=== PATIENT | female | born 1960 | race African-American/Black ===

== ENCOUNTER 2021-12-17 00:08 | Emergency (ER) | payer OTHER ==
[~2021-12-17] VITALS: Ht 154.9 cm; Wt 122.5 kg
[2021-12-17 01:22] LABS: Basophils # (auto) 0 10 ^3/uL (0-0.2); Basophils % (auto) 0.6 % (0.0-2.0); Eosinophils # (auto) 0.1 10 ^3/uL (0-0.8); Eosinophils % (auto) 1.4 % (0.0-7.0); Hematocrit 45.8 % (36.0-46.0); Hemoglobin 15.3 g/dL (12.2-16.2); Lymphocytes # (auto) 1.5 10 ^3/uL (0.4-5.4); Lymphocytes % (auto) 29.9 % (10.0-50.0); Mean Corpuscular Hemoglobin 30.7 pg (28.0-32.0); Mean Corpuscular Hgb Conc. 33.4 g/dL (32.0-36.0); Monocytes # (auto) 0.3 10 ^3/uL (0-1.3); Monocytes % (auto) 6.7 % (0.0-12.0); Neutrophils % (auto) 61.4 % (37.0-80.0); Nucleated Red Blood Cells % 0.1 %; Red Blood Cells 4.99 10^6/uL (4.0-5.20); White Blood Cell 4.9 10^3/uL (4.4-10.8)
[2021-12-17] MEDS ORDERED: SODIUM CHLORIDE 0.9% 1,000 ML IV ONE (01:45)
[2021-12-17] MEDS ORDERED: MORPHINE SULFATE 4 MG/ML SYR/VIAL IV ONE (01:45)
[2021-12-17] MEDS ORDERED: ONDANSETRON HCL 4 MG/2 ML VIAL IV ONE (01:45)
[2021-12-17 01:56] LABS: Albumin 3.4 g/dL (3.4-5.0); BUN/Creatinine Ratio 12.5; Bilirubin, Total 0.3 mg/dL (0.2-1.0); Calcium 9.1 mg/dL (8.5-10.1); Potassium 3.6 mmol/L (3.5-5.1); Total Protein 8.5 g/dL (6.4-8.2)
[2021-12-17] MEDS ORDERED: IOHEXOL 300 MG/ML 100ML BOTTLE IJ ONE (02:23)
[2021-12-17 03:15] LABS: Urine Bacteria NONE SEEN /hpf (None Seen); Urine Blood Negative /uL (Negative); Urine Mucus FEW (None Seen); Urine Specific Gravity 1.012 (1.001-1.035); Urine WBC 3 /hpf (0 - 5)
[2021-12-17] MEDS ORDERED: DICY10CA PO (05:40)
[2021-12-17] MEDS ORDERED: ONDA-144 PO (05:40)
[2021-12-17 06:00] VITALS: BP 129/69
== END 2021-12-17 06:31 | disposition home or self-care (01) ==
LOC: EDBD → ER 00:20
DX: A05.9 Bacterial foodborne intoxication, unspecified (principal); D25.9 Leiomyoma of uterus, unspecified; I10 Essential (primary) hypertension; Z86.73 Personal history of transient ischemic attack (TIA), and cerebral infarction without residual deficits
CPT/HCPCS: 36415; 74177; 80053; 81001; 83690; 84484; 85025; 96361; 96374; 96375; 99285; J2270; J2405; J7030; Q9967

== ENCOUNTER 2021-12-18 12:10 | Emergency (ER) | payer OTHER, MEDICAID ==
[~2021-12-18] VITALS: Ht 154.9 cm; Wt 122.5 kg
[~2021-12-18 12:10] MED LIST: DICY10CA PO; ONDA-144 PO
[2021-12-18 12:18] VITALS: BP 160/73
[2021-12-18 13:11] LABS: Urine WBC None Seen /hpf (0 - 5)
[2021-12-18 13:22] LABS: Urine Bacteria NONE SEEN /hpf (None Seen); Urine Blood Negative /uL (Negative); Urine Specific Gravity 1.005 (1.001-1.035)
[2021-12-18 14:05] LABS: Basophils # (auto) 0 10 ^3/uL (0-0.2); Basophils % (auto) 0.6 % (0.0-2.0); Eosinophils # (auto) 0.2 10 ^3/uL (0-0.8); Hematocrit 43.3 % (36.0-46.0); Hemoglobin 14.9 g/dL (12.2-16.2); Lymphocytes # (auto) 1.9 10 ^3/uL (0.4-5.4); Lymphocytes % (auto) 35.5 % (10.0-50.0); Mean Corpuscular Hgb Conc. 34.4 g/dL (32.0-36.0); Mean Corpuscular Volume 90.1 fL (80.0-100.0); Monocytes # (auto) 0.7 10 ^3/uL (0-1.3); Monocytes % (auto) 12.3 % (0.0-12.0); Neutrophils # (auto) 2.5 10 ^3/uL (1.6-8.6); Neutrophils % (auto) 47.6 % (37.0-80.0); Nucleated Red Blood Cells % 0.1 %; Red Cell Distribution Width 15.6 % (11.8-14.3); White Blood Cell 5.3 10^3/uL (4.4-10.8)
[2021-12-18 14:28] LABS: Albumin 3.1 g/dL (3.4-5.0); BUN/Creatinine Ratio 18.2; Calcium 9.1 mg/dL (8.5-10.1); Potassium 3.9 mmol/L (3.5-5.1)
[2021-12-18 14:31] LABS: Bilirubin, Total 0.4 mg/dL (0.2-1.0)
[2021-12-18 17:43] LABS: Magnesium 2.2 mg/dL (1.6-2.6)
== END 2021-12-18 19:17 | disposition home or self-care (01) ==
LOC: ER 12:10 → EDBD 12:10 → EDUNIT# 12:10 → ER 19:17
DX: R42 Dizziness and giddiness (principal); R60.9 Edema, unspecified; I11.0 Hypertensive heart disease with heart failure; I50.9 Heart failure, unspecified; Z86.73 Personal history of transient ischemic attack (TIA), and cerebral infarction without residual deficits
CPT/HCPCS: 36415; 70450; 71046; 80053; 81001; 83690; 83735; 84484; 85025; 93005

== ENCOUNTER 2022-01-17 21:33 | Emergency (ER) | payer OTHER, MEDICAID ==
[~2022-01-17] VITALS: Ht 154.9 cm; Wt 111.1 kg
[2022-01-17 23:57] LABS: Basophils # (auto) 0 10 ^3/uL (0-0.2); Basophils % (auto) 0.5 % (0.0-2.0); Eosinophils # (auto) 0.2 10 ^3/uL (0-0.8); Eosinophils % (auto) 5.2 % (0.0-7.0); Hematocrit 39.3 % (36.0-46.0); Hemoglobin 13.3 g/dL (12.2-16.2); Lymphocytes # (auto) 1.3 10 ^3/uL (0.4-5.4); Lymphocytes % (auto) 31.3 % (10.0-50.0); Mean Corpuscular Hemoglobin 31.4 pg (28.0-32.0); Mean Corpuscular Hgb Conc. 33.8 g/dL (32.0-36.0); Mean Corpuscular Volume 92.9 fL (80.0-100.0); Monocytes # (auto) 0.5 10 ^3/uL (0-1.3); Monocytes % (auto) 12.8 % (0.0-12.0); Neutrophils # (auto) 2.1 10 ^3/uL (1.6-8.6); Neutrophils % (auto) 50.2 % (37.0-80.0); Red Blood Cells 4.23 10^6/uL (4.0-5.20); Red Cell Distribution Width 15.3 % (11.8-14.3); White Blood Cell 4.2 10^3/uL (4.4-10.8)
[2022-01-18 00:19] LABS: Albumin 2.8 g/dL (3.4-5.0); BUN/Creatinine Ratio 16.2; Calcium 8.6 mg/dL (8.5-10.1); Potassium 4.4 mmol/L (3.5-5.1)
[2022-01-18 00:23] LABS: Bilirubin, Total 0.2 mg/dL (0.2-1.0)
[2022-01-18 02:59] LABS: Urine Bacteria NONE SEEN /hpf (None Seen); Urine Blood Negative /uL (Negative); Urine Specific Gravity 1.008 (1.001-1.035); Urine WBC 2 /hpf (0 - 5)
[2022-01-18] MEDS ORDERED: MORPHINE SULFATE INJ 2 MG/ml SYRG IM ONE (03:30)
[2022-01-18 05:00] VITALS: BP 109/61
== END 2022-01-18 05:58 | disposition home or self-care (01) ==
LOC: EDBD 21:33 → ER 21:43
DX: R42 Dizziness and giddiness (principal); R53.1 Weakness; I11.0 Hypertensive heart disease with heart failure; I50.9 Heart failure, unspecified; Z86.73 Personal history of transient ischemic attack (TIA), and cerebral infarction without residual deficits
CPT/HCPCS: 36415; 70450; 80053; 81001; 83880; 84484; 85025; 93005; 96372; 99285; J2270

== ENCOUNTER 2022-01-25 02:04 | Emergency (ER) | payer OTHER, MEDICAID ==
[~2022-01-25] VITALS: Ht 175.3 cm; Wt 113.4 kg
[2022-01-25 02:59] LABS: Basophils # (auto) 0 10 ^3/uL (0-0.2); Basophils % (auto) 0.8 % (0.0-2.0); Eosinophils # (auto) 0.2 10 ^3/uL (0-0.8); Hematocrit 38.4 % (36.0-46.0); Lymphocytes # (auto) 1.2 10 ^3/uL (0.4-5.4); Lymphocytes % (auto) 25.9 % (10.0-50.0); Mean Corpuscular Hgb Conc. 33.9 g/dL (32.0-36.0); Mean Corpuscular Volume 94.3 fL (80.0-100.0); Monocytes # (auto) 0.7 10 ^3/uL (0-1.3); Monocytes % (auto) 14.6 % (0.0-12.0); Neutrophils # (auto) 2.5 10 ^3/uL (1.6-8.6); Neutrophils % (auto) 54.7 % (37.0-80.0); Nucleated Red Blood Cells % 0.2 %; Red Blood Cells 4.07 10^6/uL (4.0-5.20); Red Cell Distribution Width 15.5 % (11.8-14.3); White Blood Cell 4.5 10^3/uL (4.4-10.8)
[2022-01-25] MEDS ORDERED: MORPHINE SULFATE 4 MG/ML SYR/VIAL IV ONE ×2 (03:15→05:00)
[2022-01-25 03:16] LABS: Albumin 2.8 g/dL (3.4-5.0); Calcium 8.3 mg/dL (8.5-10.1); Potassium 4.3 mmol/L (3.5-5.1)
[2022-01-25 03:19] LABS: BUN/Creatinine Ratio 23.6; Bilirubin, Total 0.2 mg/dL (0.2-1.0)
[2022-01-25] MEDS ORDERED: ONDANSETRON HCL 4 MG/2 ML VIAL ONE (03:39)
[2022-01-25 06:24] VITALS: BP 117/72
== END 2022-01-25 06:54 | disposition home or self-care (01) ==
LOC: EDBD 02:04 → ER 02:04
DX: I89.0 Lymphedema, not elsewhere classified (principal); I11.0 Hypertensive heart disease with heart failure; I50.9 Heart failure, unspecified; E78.5 Hyperlipidemia, unspecified; Z86.73 Personal history of transient ischemic attack (TIA), and cerebral infarction without residual deficits; Z79.899 Other long term (current) drug therapy; Z88.1 Allergy status to other antibiotic agents
CPT/HCPCS: 36415; 71045; 80053; 83880; 84484; 85025; 93005; 96374; 96376; 99285; J2270; J2405

== ENCOUNTER 2022-02-03 14:11 | Emergency (ER) | payer OTHER, MEDICAID ==
[~2022-02-03] VITALS: Ht 165.1 cm; Wt 111.1 kg
[2022-02-03 14:22] VITALS: BP 146/80
== END 2022-02-03 16:15 | disposition home or self-care (01) ==
LOC: ER 14:11 → EDBD 14:11 → ER 16:15
DX: R51.9 Headache, unspecified (principal); I10 Essential (primary) hypertension; I11.0 Hypertensive heart disease with heart failure; I50.9 Heart failure, unspecified; E78.5 Hyperlipidemia, unspecified; Z86.73 Personal history of transient ischemic attack (TIA), and cerebral infarction without residual deficits; Z79.899 Other long term (current) drug therapy; Z88.1 Allergy status to other antibiotic agents
CPT/HCPCS: 70450

== ENCOUNTER 2022-02-08 00:08 | Emergency (ER) | payer OTHER, MEDICAID ==
[2022-02-08 04:00] VITALS: BP 148/82
== END 2022-02-08 06:37 | disposition home or self-care (01) ==
LOC: ER 00:08 → EDBD 00:08 → ER 06:37
DX: R55 Syncope and collapse (principal); I11.0 Hypertensive heart disease with heart failure; I50.9 Heart failure, unspecified; E78.5 Hyperlipidemia, unspecified; Z86.73 Personal history of transient ischemic attack (TIA), and cerebral infarction without residual deficits; Z79.899 Other long term (current) drug therapy; Z88.1 Allergy status to other antibiotic agents